=== PATIENT | male | born 1965 ===

== ENCOUNTER 2017-03-05 10:40 | Emergency (ER) | payer BC ==
[2017-03-05 12:06] VITALS: BP 142/101
--- NOTE | 2017-03-05 12:17 | UC ---
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 Onset/Duration: Days Ago - 1-2 days ago Timing: Constant Onset Severity: Mild Current Severity: None Pain Intensity: 0 Pain Scale Used: 0-10 Numeric Location: Discrete - right upper thigh Character: Redness - at attachment site Aggravating: Nothing Alleviating: Nothing Associated Signs & Symptoms: Positive: Negative Related History: Insect Bite/Sting - Allergy/Home Medications Allergies/Adverse Reactions: Allergies Allergy/AdvReac Type Severity Reaction Status Date / Time No Known Allergies Allergy Verified 03/05/17 12:01 Home Medications: Home Medications Hydrochlorothiazide TAB* [Hydrodiuril TAB*] 1 tab PO DAILY 03/05/17 [History Confirmed 03/05/17] Review of Systems Constitutional: Negative Skin: Other - erythema a t tick site Eyes: Negative ENT: Negative Respiratory: Negative Cardiovascular: Negative Gastrointestinal: Negative Genitourinary: Negative Motor: Negative Neurovascular: Negative Musculoskeletal: Negative Neurological: Negative Psychological: Negative All Other Systems Reviewed And Are Negative: Yes PMH/Surg Hx/FS Hx/Imm Hx Previously Healthy: Yes Cardiovascular History: Hypertension - Surgical History Surgical History: None - Family History Known Family History: Positive: None Family History: no cardiovascular issues reported in family lineage - Social History Occupation: Employed Full-time Lives: With Family Alcohol Use: None Substance Use Type: None Smoking Status (MU): Never Smoked Tobacco Physical Exam Triage Information Reviewed: Yes Appearance: Well-Appearing, No Pain Distress, Well-Nourished Vital Signs: Initial Vital Signs Temp 98.9 F 03/05/17 12:04 Pulse 79 03/05/17 12:04 Resp 16 03/05/17 12:04 BP 142/101 03/05/17 12:04 Pulse Ox 98 03/05/17 12:04 Vital Signs Reviewed: Yes Eye Exam: Normal Eyes: Positive: Conjunctiva Clear ENT Exam: Normal ENT: Positive: Normal ENT inspection, Hearing grossly normal. Negative: Nasal congestion, Nasal drainage, Trismus, Muffled/hoarse voice Dental Exam: Normal Neck exam: Normal Neck: Positive: Supple, Nontender Respiratory Exam: Normal Respiratory: Positive: Chest non-tender, Lungs clear, Normal breath sounds, No respiratory distress, No accessory muscle use Cardiovascular Exam: Normal Cardiovascular: Positive: RRR, No Murmur, Pulses Normal, Brisk Capillary Refill Musculoskeletal Exam: Normal Musculoskeletal: Positive: Strength Intact, ROM Intact, No Edema Neurological Exam: Normal Neurological: Positive: Alert, Muscle Tone Normal Psychological Exam: Normal Skin Exam: Normal Course/Dx - Course Course Of Treatment: soap and water wash, Doxycycline times one dose follow with pcp prn - Differential Diagnoses - Skin Complaint Differential Diagnoses: Impetigo, Local Allergic Reaction, Tick Born Illness - Diagnoses Provider Diagnoses: Tick Bite, Hypertension in poor control, Lyme PEP Discharge - Discharge Plan Condition: Stable Disposition: HOME Patient Education Materials: Tick Bite (ED), Warm Compress or Soak (ED), DASH Eating Plan (ED), Hypertension (ED), Doxycycline (By mouth) Referrals: Aliza Fitzgerald MD [Medical Doctor] - 1 Week Additional Instructions: Your Blood Pressure today is a little high 142/101.
== END 2017-03-05 12:29 | disposition home or self-care (01) ==
LOC: UCEAST 10:40
DX: S70.361A Insect bite (nonvenomous), right thigh, initial encounter (principal); W57.XXXA Bitten or stung by nonvenomous insect and other nonvenomous arthropods, initial encounter; I10 Essential (primary) hypertension
CPT/HCPCS: 99212; G0463